=== PATIENT | female | born 1965 | race Caucasian/White ===

== ENCOUNTER 2017-05-17 09:10 | Outpatient (CLI) | payer BC | END 2017-05-17 09:11 | disposition home or self-care (01) | LOC: BICMAMMO 09:10 | PROVIDERS: ATTEND Family Medicine | DX: Z13.820 Encounter for screening for osteoporosis (principal) | CPT/HCPCS: 77080 ==

== ENCOUNTER 2017-05-17 11:30 | Outpatient (CLI) | payer BC | END 2017-05-17 11:31 | disposition home or self-care (01) | LOC: BICRAD 11:30 | PROVIDERS: ATTEND Family Medicine | DX: M25.552 Pain in left hip (principal); M25.551 Pain in right hip; M16.0 Bilateral primary osteoarthritis of hip ==

== ENCOUNTER 2017-07-19 08:01 | Outpatient (CLI) | payer BC ==
[2017-07-19] MEDS ORDERED: ISOVUE-370 76%-LOCM 1 ML ONE (16:24)
== END 2017-07-19 08:02 | disposition home or self-care (01) ==
LOC: BICCT 08:01
PROVIDERS: ATTEND Family Medicine
DX: R10.32 Left lower quadrant pain (principal); R93.2 Abnormal findings on diagnostic imaging of liver and biliary tract; Z87.19 Personal history of other diseases of the digestive system; Z90.49 Acquired absence of other specified parts of digestive tract
CPT/HCPCS: 74177

== ENCOUNTER 2017-10-02 18:27 | Emergency (ER) | payer BC ==
--- NOTE | 2017-10-02 20:00 | ULT ---
ULTRASOUND WITH DOPPLER DUPLEX VENOUS LOWER EXTREMITY LEFT: 10/02/17 HISTORY: 52-year-old female with left calf pain for six weeks. TECHNIQUE: Color flow Doppler, spectral waveform analysis of pulsed Doppler, and danielle-scale imaging with andrea diane and augmentation, were used to evaluate the left common femoral, femoral, popliteal, posterior t ibial, and superficial femoral, veins; and the proximal portions of the profunda femoral and greater saphenous, veins. FINDINGS: There is normal compressibility, demonstration of blood flow by color Doppler and pulsed Doppler, and response to augmentation, in all interrogated veins. IMPRESSION: Negative. No deep vein thrombosis in the left lower extremity. jn[] POS: [facility]
== END 2017-10-02 20:13 | disposition home or self-care (01) ==
LOC: SCSER 18:27
DX: M79.662 Pain in left lower leg (principal); F32.9 Major depressive disorder, single episode, unspecified; F17.210 Nicotine dependence, cigarettes, uncomplicated; G47.30 Sleep apnea, unspecified

== ENCOUNTER 2023-11-28 08:53 | Outpatient (CLI) | payer BC | END 2023-11-28 08:54 | disposition home or self-care (01) | LOC: BICMAMMO 08:53 | PROVIDERS: ATTEND Internal Medicine Hematology & Oncology | DX: D72.820 Lymphocytosis (symptomatic) (principal); C50.919 Malignant neoplasm of unspecified site of unspecified female breast; M85.88 Other specified disorders of bone density and structure, other site; Z79.811 Long term (current) use of aromatase inhibitors | CPT/HCPCS: 77080 ==